=== PATIENT | male | born 2000 | race Caucasian/White ===

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

== ENCOUNTER 2022-01-25 14:23 | Emergency (ER) | payer SELFPAY ==
[2022-01-25 15:09] VITALS: BP 157/87; PULSE 96
[2022-01-25] MEDS ORDERED: Diphtheria,Pertussis(Acell),Tetanus Vaccine 0.5 ML Syringe IM ONE (15:27)
[2022-01-25] MEDS ORDERED: Bacitracin Oint 1 GM U/D Packet TOP ONE (15:28)
[2022-01-25] MEDS ORDERED: Lidocaine 1% 5 ML VIAL INJECT ONE (15:28)
[2022-01-25] MEDS ORDERED: Lidocaine/Epineph/Tetracaine 3 ML Syringe TOP ONE (15:48)
== END 2022-01-25 16:55 | disposition home or self-care (01) ==
LOC: JP.ED 14:23
DX: S61.211A Laceration without foreign body of left index finger without damage to nail, initial encounter (principal); J45.909 Unspecified asthma, uncomplicated; Z88.8 Allergy status to other drugs, medicaments and biological substances; Z23 Encounter for immunization; W26.0XXA Contact with knife, initial encounter
CPT/HCPCS: 12002; 90471; 90715; 99283; A9270